=== PATIENT | male | born 1940 | race Caucasian/White ===

== ENCOUNTER 2016-05-01 05:28 | Inpatient (IN) | payer OTHER ==
[~2016-05-01] VITALS: Ht 172.7 cm; Wt 72.1 kg
[~2016-05-01 05:28] MED LIST: ACETAMINOPHEN-1 EAC1 PO; ADVAIR 250/501 DISK IH; ADVAIR HFA120 INHALA IH; ASCORBIC ACID500 M3 PO; ASPIRIN325 MG PO; ATORVASTATIN CA40 MG PO; COLACE100 MG PO; COMBIVENT RESPIM4 GM IH; DAILY VALUE1 EACH PO; FISH OIL 1,2001 EAC4 PO; FLAGYL500 MG PO; FOLIC ACID1 MG PO; FUROSEMIDE40 MG PO; HEPARIN SO5000 UNITS SC; HYDROCODON-ACE1 EAC7 PO; IBUPROFEN600 MG PO; KEFLEX500 MG PO; LAXATIVE25 MG PO; LEVOFLOXACIN250 MG PO; POTASSIUM CHLO20 ME1 PO; SEROQUEL12.5 MG PO; TAMSULOSIN HCL0.4 MG PO; TOPROL XL50 MG PO; TYLENOL REGULA325 MG PO; VENTOLIN HFA18 GM IH; VITAMIN E400 UNIT PO
[2016-05-01] MEDS ORDERED: LO-DOSE ASPIRIN81 M2 PO (05:48)
[2016-05-01 06:07] LABS: CHLORIDE 95 mEq/L (99-109); HEMATOCRIT 33.9 % (38.0-50.0); MCH 26.9 PG (29.0-34.0); MCHC 32.7 G/DL (30.0-36.0); MCV 82.1 FL (86-99); MEAN PLAT.VOLUME 9.1 uM^3 (9.0-12.4); PLATELET COUNT 401 K/uL (156-360); POTASSIUM 3.6 mEq/L (3.7-5.4); RBC DIS.WIDTH-CV 13.7 % (11.8-14.6); RED BLOOD COUNT 4.13 M/uL (4.00-5.50); SODIUM 127 mEq/L (136-147)
[2016-05-01 06:10] LABS: WHITE BLOOD COUNT 16.2 K/uL (4.1-10.2)
[2016-05-01 06:15] LABS: TROP-I INTERPRETATION NEGATIVE; TROPONIN-I 0.01 ng/mL (0.0-0.30)
[2016-05-01 06:35] LABS: GLUCOSE 146 mg/dL (70-99)
[2016-05-01 06:36] LABS: ANION GAP 13 MEQ/L (2-14)
[2016-05-01 06:39] LABS: GFR ESTIMATE (CALCULATED) > 59 mL/min/
[2016-05-01 06:40] LABS: UREA NITROGEN (BUN) 15 mg/dL (9-23)
[2016-05-01 06:51] LABS: TOTAL BILIRUBIN 1.4 mg/dL (0.0-1.0)
[2016-05-01 06:52] LABS: ALKALINE PHOSPHATASE 95 IU/L (3-129)
[2016-05-01 08:35] LABS: ADD MIUA? YES; BILIRUBIN NEGATIVE; BLOOD NEGATIVE; COLOR YELLOW ((YELLOW)); GLUCOSE (STRIP) NEGATIVE; KETONES NEGATIVE; LEUKOCYTES NEGATIVE; NITRITE NEGATIVE; PROTEIN (STRIP) 100; SPECIFIC GRAVITY 1.021 (1.000-1.030)
[2016-05-01] MEDS ORDERED: FISH OIL300 MG PO (08:40)
[2016-05-01] MEDS ORDERED: OSTEO BI-FLEX1 EAC1 PO (08:40)
[2016-05-01] MEDS ORDERED: METOPROLOL SUCC25 MG PO (08:40)
[2016-05-01 08:57] LABS: BACTERIA RARE /HPF; EPITHELIAL CELLS RARE /HPF; HYALINE CASTS 0-5 /LPF; MUCUS 2+ /LPF; UCUL ADDED? NO; UNCLASSIFIED CASTS 0-5 /LPF; WHITE BLOOD CELLS 0-5 /HPF (0-5)
[2016-05-01 09:04] LABS: ABS NEUTROPHIL COUNT 13.26; ANISOCYTOSIS 1+; PLAT.SUFFICIENCY INCREASED; USER ID CCL
[2016-05-01 09:05] LABS: DELETE MACHINE DIFF? YES
[2016-05-01 09:15] VITALS: BP 130/63
[2016-05-01 09:16] LABS: TROP-I INTERPRETATION NEGATIVE; TROPONIN-I < 0.01 ng/mL (0.0-0.30)
[2016-05-01 09:23] VITALS: BP 130/62
[2016-05-01 11:39] VITALS: BP 133/59
[2016-05-01 14:55] VITALS: BP 123/67
[2016-05-01 21:00] VITALS: BP 108/58
[2016-05-02] VITALS (7 sets, daily range): BP systolic 116–137; BP diastolic 65–80
[2016-05-02 04:42] LABS: UR CREATININE CONCENTRATION 123.5 MG/DL
[2016-05-02 06:14] LABS: MCH 26.6 PG (29.0-34.0); MCHC 32.6 G/DL (30.0-36.0); MCV 81.6 FL (86-99); MEAN PLAT.VOLUME 9.5 uM^3 (9.0-12.4); PLATELET COUNT 352 K/uL (156-360); RBC DIS.WIDTH-CV 14.1 % (11.8-14.6); WHITE BLOOD COUNT 20.2 K/uL (4.1-10.2)
[2016-05-02 06:39] LABS: ANION GAP 8 MEQ/L (2-14); CHLORIDE 106 MEQ/L (99-109); GFR ESTIMATE (CALCULATED) > 59 mL/min/; GLUCOSE 153 mg/dL (70-99); POTASSIUM 4.3 MEQ/L (3.7-5.4); SAMPLE HEMOLYSIS CHECK 0; SAMPLE ICTERIC CHECK 0; SAMPLE LIPEMIA CHECK 0; URIC ACID 5.5 mg/dL (3.1-9.2)
[2016-05-02 06:43] LABS: SODIUM 138 MEQ/L (136-147); UREA NITROGEN (BUN) 23 mg/dL (9-23)
[2016-05-02 07:11] LABS: INTERNAL CONTROL VALID? YES
[2016-05-02 07:48] LABS: INTER. NORMALIZED RATIO 1.2; PROTHROMBIN TIME 12.6 (9.2-11.2)
[2016-05-03] VITALS: BP 154/85
[2016-05-03 07:11] LABS: EOSINOPHIL (%) 0.1 % (0-5); IMMATURE GRANULOCYTE (%) 0.2 % (0.0-0.7); LYMPHOCYTE COUNT 1.2 K/uL (1.0-2.8); MCH 25.8 PG (29.0-34.0); MCHC 31.6 G/DL (30.0-36.0); MCV 81.6 FL (86-99); MEAN PLAT.VOLUME 9.3 uM^3 (9.0-12.4); MONOCYTE (%) 5.1 % (3-12); MONOCYTE COUNT 0.9 K/uL (0-0.8); NEUTROPHIL (%) 87.7 % (45-76); NEUTROPHIL COUNT 15.8 K/uL (1.8-6.4); PLATELET COUNT 445 K/uL (156-360); RBC DIS.WIDTH-CV 14.5 % (11.8-14.6); RBC DIS.WIDTH-SD 43.1 % (39-53); RED BLOOD COUNT 3.92 M/uL (4.00-5.50)
[2016-05-03 07:32] LABS: ANION GAP 8 MEQ/L (2-14); CHLORIDE 109 MEQ/L (99-109); GFR ESTIMATE (CALCULATED) > 59 mL/min/; GLUCOSE 130 mg/dL (70-99); POTASSIUM 4.2 MEQ/L (3.7-5.4); SAMPLE HEMOLYSIS CHECK 0; SAMPLE ICTERIC CHECK 0; SAMPLE LIPEMIA CHECK 0; SODIUM 142 MEQ/L (136-147); UREA NITROGEN (BUN) 27 mg/dL (9-23)
[2016-05-03 08:59] VITALS: BP 140/93
[2016-05-03 11:25] VITALS: BP 170/77
[2016-05-03] MEDS ORDERED: CEFTIN500 MG PO (13:07)
[2016-05-03] MEDS ORDERED: PREDNISONE20 MG PO (13:08)
[2016-05-05 22:50] LABS: Neutrophil Cytoplasmic Aby Negative (Negative)
[2016-05-06 09:19] LABS: ANTI-NUCLEAR AB SCRN/RFLX(ANA) REACTIVE (NONREACTIVE)
[2016-05-06 09:23] LABS: CENTROMERE ANTIBODY 11 U/mL (0-99); HISTONE ANTIBODY 12 U/mL (0-99); JO-1 ANTIBODY 207 U/mL (0-99); SCL-70 (SCLERODERMA) ANTIBODY 19 U/mL (0-99); SM (SMITH) ANTIBODY 29 U/mL (0-99); SS-A (SJOGREN'S) ANTIBODY 50 U/mL (0-99); SS-B (SJOGREN'S) ANTIBODY 10 U/mL (0-99)
== END 2016-05-03 14:04 | disposition home or self-care (01) | DRG 190 ==
LOC: EME 05:28 → EDOF 07:50 → 4EAST 07:50 → EDOF 08:13 → 4EAST 09:10
PROVIDERS: Emergency Medicine; Internal Medicine; Internal Medicine Nephrology; Internal Medicine Pulmonary Disease; Radiology Diagnostic Radiology
DX: J44.1 Chronic obstructive pulmonary disease with (acute) exacerbation (principal); J18.9 Pneumonia, unspecified organism; J90 Pleural effusion, not elsewhere classified; E22.2 Syndrome of inappropriate secretion of antidiuretic hormone; I25.10 Atherosclerotic heart disease of native coronary artery without angina pectoris; I11.9 Hypertensive heart disease without heart failure; E78.5 Hyperlipidemia, unspecified; N28.1 Cyst of kidney, acquired; I70.0 Atherosclerosis of aorta; E86.0 Dehydration; N40.0 Benign prostatic hyperplasia without lower urinary tract symptoms; M62.81 Muscle weakness (generalized); Z95.5 Presence of coronary angioplasty implant and graft; Z87.891 Personal history of nicotine dependence; Z82.49 Family history of ischemic heart disease and other diseases of the circulatory system
CPT/HCPCS: 71010; 71020; 71275; 76604; 76770; 80048; 80053; 81003; 82436; 82570; 83880; 83930; 83935; 84133; 84156; 84300; 84439; 84443; 84484; 84550; 85025; 85027; 85610; 85730; 86021 90; 86038; 86235; 86803; 87040; 87449; 93005; 94640 76; 94644; 99202; 99281; 99285; J0696; J1644; J1956; J2920; J2930; J3475; J7030; J7050; J7512

== ENCOUNTER 2016-05-09 15:50 | Inpatient (IN) | payer OTHER ==
[~2016-05-09] VITALS: Ht 172.7 cm; Wt 68.0 kg
[~2016-05-09 15:50] MED LIST changes: +CEFTIN500 MG PO; +FISH OIL300 MG PO; +LO-DOSE ASPIRIN81 M2 PO; +METOPROLOL SUCC25 MG PO; +OSTEO BI-FLEX1 EAC1 PO; +PREDNISONE20 MG PO
[2016-05-09 17:19] LABS: HEMATOCRIT 33.7 % (38.0-50.0); MCH 26.8 PG (29.0-34.0); MCHC 32.3 G/DL (30.0-36.0); MCV 82.8 FL (86-99); MEAN PLAT.VOLUME 8.2 uM^3 (9.0-12.4); PLATELET COUNT 434 K/uL (156-360); RBC DIS.WIDTH-CV 14.5 % (11.8-14.6); RBC DIS.WIDTH-SD 42.4 % (39-53); RED BLOOD COUNT 4.07 M/uL (4.00-5.50); WHITE BLOOD COUNT 9.2 K/uL (4.1-10.2)
[2016-05-09 17:26] LABS: CHLORIDE 102 mEq/L (99-109); POTASSIUM 3.8 mEq/L (3.7-5.4); SODIUM 139 mEq/L (136-147)
[2016-05-09 17:28] LABS: GLUCOSE 161 mg/dL (70-99)
[2016-05-09 17:29] LABS: ANION GAP 9 MEQ/L (2-14)
[2016-05-09 17:30] LABS: TOTAL BILIRUBIN 0.6 mg/dL (0.0-1.0)
[2016-05-09 17:31] LABS: ALKALINE PHOSPHATASE 77 IU/L (3-129)
[2016-05-09 17:32] LABS: GFR ESTIMATE (CALCULATED) > 59 mL/min/
[2016-05-09 17:33] LABS: UREA NITROGEN (BUN) 12 mg/dL (9-23)
[2016-05-09 17:37] LABS: TROP-I INTERPRETATION NEGATIVE; TROPONIN-I < 0.01 ng/mL (0.0-0.30)
[2016-05-09] MEDS ORDERED: LITE COAT ASPI325 M1 PO (19:04)
[2016-05-09] MEDS ORDERED: LEVAQUIN500 MG PO (19:05)
[2016-05-09] MEDS ORDERED: SPIRIVA IH (19:06)
[2016-05-09 21:15] VITALS: BP 160/76
[2016-05-09 22:35] VITALS: BP 160/76
[2016-05-10 00:59] LABS: TROP-I INTERPRETATION NEGATIVE; TROPONIN-I < 0.01 ng/mL (0.0-0.30)
[2016-05-10 04:26] VITALS: BP 125/67
[2016-05-10 06:40] LABS: HEMATOCRIT 30.6 % (38.0-50.0); MCH 26.7 PG (29.0-34.0); MCHC 32.4 G/DL (30.0-36.0); MCV 82.5 FL (86-99); MEAN PLAT.VOLUME 8.8 uM^3 (9.0-12.4); PLATELET COUNT 342 K/uL (156-360); RBC DIS.WIDTH-CV 14.7 % (11.8-14.6); RBC DIS.WIDTH-SD 44.3 % (39-53); RED BLOOD COUNT 3.71 M/uL (4.00-5.50)
[2016-05-10 06:50] LABS: ANION GAP 8 MEQ/L (2-14); CHLORIDE 101 MEQ/L (99-109); GFR ESTIMATE (CALCULATED) > 59 mL/min/; POTASSIUM 3.9 MEQ/L (3.7-5.4); SAMPLE HEMOLYSIS CHECK 0; SAMPLE ICTERIC CHECK 0; SAMPLE LIPEMIA CHECK 0; SODIUM 136 MEQ/L (136-147); UREA NITROGEN (BUN) 10 mg/dL (9-23)
[2016-05-10 06:52] LABS: GLUCOSE 107 mg/dL (70-99)
[2016-05-10 06:55] LABS: TROP-I INTERPRETATION NEGATIVE; TROPONIN-I < 0.01 ng/mL (0.0-0.30)
[2016-05-10 07:50] VITALS: BP 152/69
[2016-05-10 10:46] LABS: TYPE OF FLUID PLEURAL
[2016-05-10 10:58] LABS: BODY FLUID RBC'S 22000 /MM^3 (0-100); BODY FLUID WBC'S 3859 /MM^3 (0-500)
[2016-05-10 11:24] LABS: BODY FLUID EOSINOPHILS 1 % (0-25); COMMENT FEW MACROPHAGES.; MONO RAW COUNT 46; MONONUCLEAR WBC'S 46 %; POLY RAW COUNT 53; POLYNUCLEAR WBC'S 53 % (0-25)
[2016-05-10 11:39] LABS: BODY FLUID LDH 373 IU/L; BODY FLUID PROTEIN 3.6 G/DL
[2016-05-10 16:02] VITALS: BP 124/65
[2016-05-10 19:38] VITALS: BP 165/72
[2016-05-10 23:40] VITALS: BP 111/55
[2016-05-11 04:02] VITALS: BP 121/69
[2016-05-11 08:06] LABS: GFR ESTIMATE (CALCULATED) > 59 mL/min/
[2016-05-11 08:09] LABS: VANCOMYCIN, TROUGH 9.4 MCG/ML (10-20)
[2016-05-11 08:47] VITALS: BP 136/77
[2016-05-11 10:01] LABS: IRON 18 MCG/DL (35-150)
[2016-05-11 10:10] LABS: FERRITIN 463 NG/ML (22-322)
[2016-05-11 12:13] VITALS: BP 144/67
[2016-05-11 16:39] VITALS: BP 165/76
[2016-05-11 19:45] VITALS: BP 130/65
[2016-05-11 23:45] VITALS: BP 134/60
[2016-05-12 03:40] VITALS: BP 121/78
[2016-05-12 04:58] LABS: HEMATOCRIT 29.7 % (38.0-50.0); MCH 26.3 PG (29.0-34.0); MCV 82.3 FL (86-99); MEAN PLAT.VOLUME 8.4 uM^3 (9.0-12.4); PLATELET COUNT 371 K/uL (156-360); RBC DIS.WIDTH-CV 14.4 % (11.8-14.6); RBC DIS.WIDTH-SD 41.9 % (39-53); RED BLOOD COUNT 3.61 M/uL (4.00-5.50); WHITE BLOOD COUNT 9.6 K/uL (4.1-10.2)
[2016-05-12 05:12] LABS: CHLORIDE 109 mEq/L (99-109); POTASSIUM 3.7 mEq/L (3.7-5.4); SODIUM 139 mEq/L (136-147)
[2016-05-12 05:13] LABS: GLUCOSE 111 mg/dL (70-99)
[2016-05-12 05:15] LABS: ANION GAP 6 MEQ/L (2-14)
[2016-05-12 05:17] LABS: GFR ESTIMATE (CALCULATED) > 59 mL/min/
[2016-05-12 05:18] LABS: UREA NITROGEN (BUN) 8 mg/dL (9-23)
[2016-05-12 08:33] VITALS: BP 112/74
[2016-05-12 12:02] VITALS: BP 143/67
[2016-05-12 15:48] LABS: METH RESISTANT S AUREUS PCR NEGATIVE (NEGATIVE)
[2016-05-12 15:51] LABS: PROBE CHECK PASS; SPECIMEN PROCESSING CONTROL PASS
[2016-05-12 16:35] VITALS: BP 134/68
[2016-05-12 19:52] VITALS: BP 164/77
[2016-05-12 23:24] VITALS: BP 177/84
[2016-05-13 05:21] VITALS: BP 146/70
[2016-05-13 08:28] VITALS: BP 139/71
[2016-05-13 11:17] VITALS: BP 177/81
[2016-05-13 16:47] VITALS: BP 178/86
[2016-05-13 22:15] VITALS: BP 139/66
[2016-05-13 23:51] VITALS: BP 120/56
[2016-05-14 05:16] VITALS: BP 128/72
[2016-05-14 05:46] LABS: HEMATOCRIT 28.4 % (38.0-50.0); MCH 25.9 PG (29.0-34.0); MCHC 31.3 G/DL (30.0-36.0); MCV 82.8 FL (86-99); MEAN PLAT.VOLUME 8.6 uM^3 (9.0-12.4); PLATELET COUNT 294 K/uL (156-360); RBC DIS.WIDTH-CV 14.8 % (11.8-14.6); RBC DIS.WIDTH-SD 44.7 % (39-53); RED BLOOD COUNT 3.43 M/uL (4.00-5.50); WHITE BLOOD COUNT 9.3 K/uL (4.1-10.2)
[2016-05-14 06:13] LABS: ANION GAP 9 MEQ/L (2-14); CHLORIDE 107 MEQ/L (99-109); GFR ESTIMATE (CALCULATED) > 59 mL/min/; GLUCOSE 99 mg/dL (70-99); POTASSIUM 3.8 MEQ/L (3.7-5.4); SAMPLE HEMOLYSIS CHECK 0; SAMPLE ICTERIC CHECK 0; SAMPLE LIPEMIA CHECK 0; SODIUM 142 MEQ/L (136-147); UREA NITROGEN (BUN) 10 mg/dL (9-23)
[2016-05-14 08:19] VITALS: BP 129/74
[2016-05-14 11:15] VITALS: BP 115/58
[2016-05-14 16:23] VITALS: BP 125/63
[2016-05-14 20:28] VITALS: BP 148/69
[2016-05-14 23:52] VITALS: BP 146/81
[2016-05-15 03:55] VITALS: BP 148/74
[2016-05-15 05:48] LABS: EOSINOPHIL (%) 4.1 % (0-5); EOSINOPHIL COUNT 0.4 K/uL (0-0.3); HEMATOCRIT 28.8 % (38.0-50.0); IMMATURE GRANULOCYTE (%) 0.2 % (0.0-0.7); LYMPHOCYTE COUNT 0.8 K/uL (1.0-2.8); MCH 25.4 PG (29.0-34.0); MCHC 30.2 G/DL (30.0-36.0); MEAN PLAT.VOLUME 8.6 uM^3 (9.0-12.4); MONOCYTE (%) 8.3 % (3-12); MONOCYTE COUNT 0.7 K/uL (0-0.8); NEUTROPHIL (%) 77.2 % (45-76); NEUTROPHIL COUNT 6.6 K/uL (1.8-6.4); PLATELET COUNT 303 K/uL (156-360); RBC DIS.WIDTH-SD 45.9 % (39-53); RED BLOOD COUNT 3.43 M/uL (4.00-5.50); WHITE BLOOD COUNT 8.5 K/uL (4.1-10.2)
[2016-05-15 06:11] LABS: ANION GAP 9 MEQ/L (2-14); CHLORIDE 108 MEQ/L (99-109); GFR ESTIMATE (CALCULATED) > 59 mL/min/; GLUCOSE 103 mg/dL (70-99); POTASSIUM 3.7 MEQ/L (3.7-5.4); SAMPLE HEMOLYSIS CHECK 0; SAMPLE ICTERIC CHECK 0; SAMPLE LIPEMIA CHECK 0; SODIUM 143 MEQ/L (136-147); UREA NITROGEN (BUN) 11 mg/dL (9-23)
[2016-05-15 07:50] VITALS: BP 153/76
[2016-05-15 11:30] VITALS: BP 158/73
[2016-05-15 16:10] VITALS: BP 170/80
[2016-05-15 19:35] VITALS: BP 183/88
[2016-05-15 19:49] VITALS: BP 162/82
[2016-05-16] VITALS (9 sets, daily range): BP systolic 118–193; BP diastolic 60–92
[2016-05-17 03:59] VITALS: BP 124/58
[2016-05-17 07:20] VITALS: BP 132/58
[2016-05-17 10:51] VITALS: BP 120/58
[2016-05-17 16:12] VITALS: BP 119/71
[2016-05-17 20:31] VITALS: BP 124/60
[2016-05-17 23:24] VITALS: BP 92/56
[2016-05-18 05:16] VITALS: BP 143/68
[2016-05-18 06:08] LABS: EOSINOPHIL (%) 2.9 % (0-5); EOSINOPHIL COUNT 0.3 K/uL (0-0.3); HEMATOCRIT 28.4 % (38.0-50.0); IMMATURE GRANULOCYTE (%) 0.2 % (0.0-0.7); LYMPHOCYTE COUNT 0.7 K/uL (1.0-2.8); MCH 26.8 PG (29.0-34.0); MCV 83.5 FL (86-99); MEAN PLAT.VOLUME 8.9 uM^3 (9.0-12.4); MONOCYTE (%) 10.7 % (3-12); MONOCYTE COUNT 0.9 K/uL (0-0.8); NEUTROPHIL (%) 77.4 % (45-76); NEUTROPHIL COUNT 6.6 K/uL (1.8-6.4); PLATELET COUNT 248 K/uL (156-360); RBC DIS.WIDTH-CV 15.1 % (11.8-14.6); RBC DIS.WIDTH-SD 45.9 % (39-53); WHITE BLOOD COUNT 8.6 K/uL (4.1-10.2)
[2016-05-18 06:38] LABS: ANION GAP 7 MEQ/L (2-14); CHLORIDE 105 MEQ/L (99-109); GFR ESTIMATE (CALCULATED) > 59 mL/min/; GLUCOSE 111 mg/dL (70-99); MAGNESIUM 1.9 mg/dl (1.3-2.7); POTASSIUM 3.5 MEQ/L (3.7-5.4); SAMPLE HEMOLYSIS CHECK 0; SAMPLE ICTERIC CHECK 0; SAMPLE LIPEMIA CHECK 0; SODIUM 139 MEQ/L (136-147); UREA NITROGEN (BUN) 16 mg/dL (9-23)
[2016-05-18 08:30] VITALS: BP 134/64
[2016-05-18 11:30] VITALS: BP 132/67
[2016-05-18 15:37] VITALS: BP 114/55
[2016-05-18 19:44] VITALS: BP 114/58
[2016-05-19] VITALS (8 sets, daily range): BP systolic 117–183; BP diastolic 52–93
[2016-05-19 06:01] LABS: EOSINOPHIL (%) 3.7 % (0-5); EOSINOPHIL COUNT 0.3 K/uL (0-0.3); HEMATOCRIT 27.9 % (38.0-50.0); IMMATURE GRANULOCYTE (%) 0.3 % (0.0-0.7); MCH 26.5 PG (29.0-34.0); MCHC 31.5 G/DL (30.0-36.0); MEAN PLAT.VOLUME 8.8 uM^3 (9.0-12.4); MONOCYTE (%) 9.7 % (3-12); MONOCYTE COUNT 0.7 K/uL (0-0.8); NEUTROPHIL (%) 72.6 % (45-76); NEUTROPHIL COUNT 5.3 K/uL (1.8-6.4); PLATELET COUNT 262 K/uL (156-360); RBC DIS.WIDTH-CV 15.1 % (11.8-14.6); RBC DIS.WIDTH-SD 46.1 % (39-53); RED BLOOD COUNT 3.32 M/uL (4.00-5.50); WHITE BLOOD COUNT 7.2 K/uL (4.1-10.2)
[2016-05-19 06:26] LABS: ANION GAP 7 MEQ/L (2-14); CHLORIDE 105 MEQ/L (99-109); GFR ESTIMATE (CALCULATED) > 59 mL/min/; GLUCOSE 100 mg/dL (70-99); MAGNESIUM 1.9 mg/dl (1.3-2.7); POTASSIUM 3.5 MEQ/L (3.7-5.4); SAMPLE HEMOLYSIS CHECK 0; SAMPLE ICTERIC CHECK 0; SAMPLE LIPEMIA CHECK 0; SODIUM 140 MEQ/L (136-147); UREA NITROGEN (BUN) 13 mg/dL (9-23)
[2016-05-20 03:47] VITALS: BP 124/58
[2016-05-20 08:57] VITALS: BP 124/59
[2016-05-20 12:15] VITALS: BP 118/58
[2016-05-20 17:00] VITALS: BP 132/62
[2016-05-20 19:32] VITALS: BP 177/82
[2016-05-20 23:12] VITALS: BP 138/82
[2016-05-21 03:00] VITALS: BP 166/79
[2016-05-21 04:03] VITALS: BP 126/67
[2016-05-21 08:45] VITALS: BP 131/60
[2016-05-21 11:57] VITALS: BP 124/62
[2016-05-21] MEDS ORDERED: AMOX TR-K CLV1 EAC4 PO (14:16)
[2016-05-21] MEDS ORDERED: SPIRIVA RESPIMAT4 GM IH (14:16)
[2016-05-21] MEDS ORDERED: METOPROLOL SUCC25 MG PO (14:16)
[2016-05-21] MEDS ORDERED: ENDOCET 5-3251 EACH PO (14:16)
[2016-05-21] MEDS ORDERED: FERROUS SULFAT325 MG PO (14:16)
[2016-05-21] MEDS ORDERED: ACIDOPHILUS LA1 EACH PO (14:16)
== END 2016-05-21 16:01 | disposition home health service (06) | DRG 186 ==
LOC: EME 15:50 → EDOF 20:18 → 3EAST 20:18
PROVIDERS: Internal Medicine; Nurse Practitioner Adult Health; Nurse Practitioner Family; Radiology Diagnostic Radiology
PROC: 0W994ZX Drainage of Right Pleural Cavity, Percutaneous Endoscopic Approach, Diagnostic (ICD-10-PCS; principal; 2016-05-10)
PROC: 0W9930Z Drainage of Right Pleural Cavity with Drainage Device, Percutaneous Approach (ICD-10-PCS; 2016-05-16)
DX: J90 Pleural effusion, not elsewhere classified (principal); J18.9 Pneumonia, unspecified organism; J44.0 Chronic obstructive pulmonary disease with (acute) lower respiratory infection; I25.10 Atherosclerotic heart disease of native coronary artery without angina pectoris; Z95.1 Presence of aortocoronary bypass graft; E78.5 Hyperlipidemia, unspecified; Z87.891 Personal history of nicotine dependence; J98.11 Atelectasis; D64.9 Anemia, unspecified; I11.9 Hypertensive heart disease without heart failure; E87.6 Hypokalemia
CPT/HCPCS: 71010; 71020; 71250; 80048; 80053; 80202; 82040; 82565; 82607; 82728; 82746; 82945; 83540; 83605; 83615 91; 83735; 84145 90; 84157; 84466; 84484; 85025; 85027; 87040; 87070; 87075; 87116; 87205; 87206; 87641; 88108; 88305; 89051; 93005; 93306; 94640; 94640 76; 97530 GO; 97530 GP; 99202; 99281; 99285; J1644; J2250; J2270; J2310; J2543; J3010; J3370; J7050

== ENCOUNTER → 2016-06-26 | Outpatient (CLI) | payer OTHER ==
[~2016-06-26] MED LIST changes: +ACIDOPHILUS LA1 EACH PO; +AMOX TR-K CLV1 EAC4 PO; +ENDOCET 5-3251 EACH PO; +FERROUS SULFAT325 MG PO; +LEVAQUIN500 MG PO; +LITE COAT ASPI325 M1 PO; +SPIRIVA IH; +SPIRIVA RESPIMAT4 GM IH
== END | disposition home or self-care (01) ==
LOC: RAD 09:46
DX: J90 Pleural effusion, not elsewhere classified (principal); J43.9 Emphysema, unspecified; R91.8 Other nonspecific abnormal finding of lung field
CPT/HCPCS: 71020